=== PATIENT | male | born 1975 | race Caucasian/White ===

== ENCOUNTER → 2020-07-04 | Outpatient (CLI) | payer OTHER | LOC: LAB 17:51 | DX: Z20.822 Contact with and (suspected) exposure to COVID-19 (principal) ==

== ENCOUNTER → 2021-04-03 | Outpatient (CLI) | payer OTHER | LOC: LAB 13:05 | DX: Z20.822 Contact with and (suspected) exposure to COVID-19 (principal) ==

== ENCOUNTER → 2021-08-21 | Day surgery (SDC) | payer OTHER | END | disposition home or self-care (01) | LOC: MSO 07-31 10:08 | DX: Z12.11 Encounter for screening for malignant neoplasm of colon (principal); Z80.0 Family history of malignant neoplasm of digestive organs | CPT/HCPCS: 00812; J2704; J7120 ==

== ENCOUNTER 2023-01-22 10:30 | Emergency (ER) | payer OTHER ==
[~2023-01-22] VITALS: Ht 172.7 cm; Wt 74.5 kg
[2023-01-22 11:20] LABS: BASO # 0.02 K/mm3 (0.02-0.10); EOS # 0.19 K/mm3 (0.04-0.40); EOS % 3.9 % (0.0-4.0); HEMATOCRIT 49.6 % (42.0-52.0); HEMOGLOBIN 16.5 g/dL (13.5-18.0); LYMPH# 1.14 K/mm3 (1.50-4.00); MEAN CELL VOLUME 90 fl (78-100); MEAN CORPUSCULAR HEMOGLOBIN 30 pg (27-31); MEAN CORPUSCULAR HGB CONC 33 g/dL (33-37); MEAN PLATELET VOLUME 9.2 fl (7.4-10.4); MONO # 0.45 K/mm3 (0.20-0.80); NEU # 3.02 K/mm3 (1.40-6.50); PLATELET COUNT 205 K/mm3 (130-400); RED BLOOD COUNT 5.51 M/mm3 (4.20-5.60); RED CELL DISTRIBUTION WIDTH 11.9 % (11.5-14.5); WHITE BLOOD COUNT 4.8 K/mm3 (4.8-10.8)
[2023-01-22 11:38] LABS: ALBUMIN 4.4 g/dL (3.5-5.0); POTASSIUM 4.3 mmol/L (3.5-5.1); SODIUM 139 mmol/L (136-145)
[2023-01-22 11:39] LABS: CALCIUM 9.8 mg/dL (8.3-10.5)
[2023-01-22 11:40] LABS: GLUCOSE 105 mg/dL (75-110)
[2023-01-22 11:41] LABS: TOTAL PROTEIN 7.3 g/dL (6.4-8.3)
[2023-01-22 11:42] LABS: CARBON DIOXIDE 23 mmol/L (22-29); TOTAL BILIRUBIN 0.8 mg/dL (0.2-1.2)
[2023-01-22 11:46] LABS: AST-SGOT 18 U/L (5-34)
[2023-01-22 11:47] LABS: ALT/SGPT 19 U/L (0-55)
[2023-01-22 11:48] LABS: LIPASE 23 U/L (8-78)
[2023-01-22 11:56] LABS: TROPONIN-I < 0.030 ng/mL (<0.030)
[2023-01-22] MEDS ORDERED: TOPCARE OMEPRAZ20 MG PO (12:20)
[2023-01-22 12:44] VITALS: BP 144/102
== END 2023-01-22 12:25 | disposition home or self-care (01) ==
LOC: ED 10:30
PROVIDERS: Physician Assistant
DX: K21.9 Gastro-esophageal reflux disease without esophagitis (principal)

== ENCOUNTER 2024-04-07 18:55 | Emergency (ER) | payer OTHER ==
[~2024-04-07] VITALS: Ht 172.7 cm; Wt 77.3 kg
[~2024-04-07 18:55] MED LIST: TOPCARE OMEPRAZ20 MG PO
[2024-04-07] MEDS ORDERED: Ondansetron 4 MG/2 ML VIAL IV ONE (19:45)
[2024-04-07] MEDS ORDERED: NS 1,000 ML IV SCH (19:45)
[2024-04-07] MEDS ORDERED: fentaNYL 100 MCG/2 ML VIAL IV ONE (20:00)
[2024-04-07 20:06] LABS: HEMATOCRIT 55.3 % (42.0-52.0); HEMOGLOBIN 18.3 g/dL (13.5-18.0); MEAN CELL VOLUME 91 fl (78-100); MEAN CORPUSCULAR HEMOGLOBIN 30 pg (27-31); MEAN CORPUSCULAR HGB CONC 33 g/dL (33-37); MEAN PLATELET VOLUME 9.1 fl (7.4-10.4); PLATELET COUNT 199 K/mm3 (130-400); RED BLOOD COUNT 6.07 M/mm3 (4.20-5.60); RED CELL DISTRIBUTION WIDTH 11.7 % (11.5-14.5); WHITE BLOOD COUNT 5.5 K/mm3 (4.8-10.8)
[2024-04-07 20:13] LABS: ALBUMIN 4.6 g/dL (3.5-5.0)
[2024-04-07 20:16] LABS: TOTAL PROTEIN 7.5 g/dL (6.4-8.3)
[2024-04-07 20:18] LABS: TOTAL BILIRUBIN 0.9 mg/dL (0.2-1.2)
[2024-04-07 20:39] LABS: LYMPHOCYTE 4 % (20-51); MONOCYTE 5 % (3-10); NEUTROPHILS 91 % (42-75)
[2024-04-07] MEDS ORDERED: ZOFRAN ODT4 MG PO (20:49)
[2024-04-07] MEDS ORDERED: BENTYL 20MG20 MG/TAB PO (20:49)
[2024-04-07] MEDS ORDERED: Morphine 4 MG/ML VIAL IV ONE (21:00)
[2024-04-07 21:21] VITALS: BP 130/94
[2024-04-07] MEDS ORDERED: Dicyclomine 10 MG CAP PO ONE (21:30)
== END 2024-04-07 22:02 | disposition home or self-care (01) ==
LOC: ED 18:55
PROVIDERS: Physician Assistant
DX: A08.4 Viral intestinal infection, unspecified (principal); Z90.49 Acquired absence of other specified parts of digestive tract
CPT/HCPCS: J2270; J2405; J3010; J7030